=== PATIENT | female | born 1975 | race Caucasian/White ===

== ENCOUNTER 2017-04-12 22:18 | Emergency (ER) | payer BC, OTHER ==
[2017-04-12] MEDS ORDERED: IBUPROFEN 600 MG TABLET PO ONE (23:02)
--- NOTE | 2017-04-12 23:07 | Emergency Department Record ---
History of Present Illness - General Chief Complaint: Ankle/Foot Injury Stated Complaint: LT FOOT PAIN, HURT AT WORK Time Seen by Provider: 04/12/17 23:02 Source: Patient Mode of Arrival: Wheelchair Limitations: No limitations - History of Present Illness Initial Comments: 41 yo female presents to ED for evaluation of a crush injury to the left foot and ankle while at work tonight. Patient reports that her foot was lodged between a high-low and a trailer. Patient denies other injury, and denies health problems other than migraine headaches. MD Complaint: Ankle injury, Foot injury Onset/Timin -: Hour(s) Injury: Ankle: Left, Foot: Left Type of Injury: Blunt Place: Work Severity scale (1-10): 8 Improves With: Rest Worsens With: Movement, Weight bearing Context: Direct blow Associated Symptoms: Swelling, Unable to bear weight - Related Data Previous Rx's Medication Instructions Recorded Hydrocodone/Acetaminophen [[place] 1 each PO Q6H PRN #10 tablet 04/13/17 5-325 Tablet] Allergies Allergy/AdvReac Type Severity Reaction Status Date / Time Penicillins Allergy HIVES Verified 01/19/15 17:25 Sulfa (Sulfonamide Allergy HIVES Verified 01/19/15 17:25 Antibiotics) Travel Screening - Travel/Exposure Within Last 30 Days Have you traveled within the last 30 days?: No - Travel Symptoms Symptom Screening: None Review of Systems Constitutional: Denies: Chills, Fever, Malaise, Night sweats Eyes: Denies: Eye discharge, Eye pain ENT: Denies: Congestion, Ear pain, Epistaxis Respiratory: Denies: Cough, Dyspnea Cardiovascular: Denies: Chest pain, Dyspnea on exertion Endocrine: Denies: Fatigue, Heat or cold intolerance Gastrointestinal: Denies: Abdominal pain, Nausea, Vomiting Genitourinary: Denies: Incontinence, Retention Musculoskeletal: Reports: Arthralgia. Denies: Back pain, Gout, Joint swelling Skin: Denies: Bruising, Change in color Neurological: Denies: Abnormal gait, Confusion, Headache, Seizure Psychiatric: Denies: Anxiety Hematological/Lymphatic: Denies: Anemia, Blood Clots Past Medical History - SOCIAL HISTORY Smoking Status: Current every day smoker - RESPIRATORY Hx Respiratory Disorders: No - CARDIOVASCULAR Hx Cardio Disorders: No - NEURO Hx Neuro Disorders: Yes Hx Headaches: Yes - GI Hx GI Disorders: No - Hx Genitourinary Disorders: No - ENDOCRINE Hx Endocrine Disorders: No - MUSCULOSKELETAL Hx Musculoskeletal Disorders: No - PSYCH Hx Psych Problems: No - HEMATOLOGY/ONCOLOGY Hx Hematology/Oncology Disorders: No Family Medical History Any Significant Family History?: Yes Hx Cancer: Grandparents Hx Diabetes: Mother, Grandparents Hx Heart Disease: Grandparents Hx Kidney Disease: Grandparents Physical Exam - General General Appearance: Alert, Oriented x3, Cooperative, Moderate distress Limitations: No limitations - Head Head exam: Atraumatic, Normocephalic, Normal inspection Head exam detail: negative: Abrasion, Contusion, Moreno's sign, General tenderness, Hematoma, Laceration - Eye Eye exam: Normal appearance. negative: Conjunctival injection, Periorbital swelling, Periorbital tenderness, Scleral icterus - ENT Ear exam: negative: Auricular hematoma, Auricular trauma Nasal Exam: negative: Active bleeding, Discharge, Dried blood, Foreign body Mouth exam: negative: Drooling, Laceration, Muffled voice, Tongue elevation - Neck Neck exam: Normal inspection. negative: Meningismus, Tenderness - Respiratory Respiratory exam: Normal lung sounds bilaterally. negative: Rales, Respiratory distress, Rhonchi, Stridor - Cardiovascular Cardiovascular Exam: Regular rate, Normal rhythm, Normal heart sounds Peripheral Pulses: 3+: Dorsalis Pedis (L) - GI/Abdominal GI/Abdominal exam: Soft. negative: Rebound, Rigid, Tenderness - Rectal Rectal exam: Deferred - exam: Deferred - Extremities Extremities exam: Joint swelling, Tenderness, Other (STS to the proximal foot dorsally, mild STS to the ankle laterally. Strong DPP, no pain proximal to the ankle on evaluation of the LE. Achilles intact, and the compartments of the lower extremity are soft on examination.). negative: Calf tenderness, Pedal edema - Back Back exam: Reports: Normal inspection. Denies: CVA tenderness (R), CVA tenderness (L) - Neurological Neurological exam: Alert, Oriented X3. negative: Motor sensory deficit - Psychiatric Psychiatric exam: Normal affect, Normal mood - Skin Skin exam: Normal color. negative: Abrasion Type of lesion: negative: abrasion Course Vital Signs 04/12/17 22:49 Temperature 98 F Pulse Rate [ 93 H Pulse Ox Probe] Respiratory 24 Rate Blood Pressure 115/90 [Left Arm] Pulse Ox 100 - Reevaluation(s) Reevaluation #1: 04/12/17 23:58 CT Lower extremity: Non-displaced fracture of the cuboid saba extending to the calcaneocuboid joint. Patient was updated on all results, will place in a non-weight bearing boot with crutches and instructions to follow-up with Dr. Bolden. Disposition Disposition: Discharge Clinical Impression: Foot fracture, left Qualifiers: Encounter type: initial encounter Fracture type: closed Qualified Code(s): S92.902A - Unspecified fracture of left foot, initial encounter for closed fracture Disposition: Home, Self-Care Condition: (2) Stable Instructions: Foot Fracture in Adults (ED) Additional Instructions: Return to ED if your symptoms worsen or if you have any concerns. Motrin and ice as needed for pain symptoms. [place] as directed. Follow-up with Dr. Bolden in 1-3 days as directed. Prescriptions: Hydrocodone/Acetaminophen [[place] 5-325 Tablet] 1 each PO Q6H PRN #10 tablet PRN Reason: Pain - Moderate (5-7) Referrals: ROSENDO BOLDEN [DOCTOR OF PODIATRY MEDICINE] - [facility] [Provider Group] Forms: Patient Portal Access Time of Disposition: 23:33 Quality - Quality Measures Quality Measures: N/A - Blood Pressure Screening Does Patient Have Any of the Following: No Blood Pressure Classification: Hypertensive Reading Systolic Measurement: 115 Diastolic Measurement: 90 Screening for High Blood Pressure: < First Hypertensive BP, F/U Documented > [ [id number]] First Hypertensive Follow-up Interventions: Referral to alternative/primary care provider.
[2017-04-12] MEDS ORDERED: HYDROCODONE/APAP 5/325MG TABLET PO ONE (23:58)
[2017-04-13 02:09] LABS: BENZODIAZEPINE SCREEN URINE NOT DETECTED; COCAINE SCREEN URINE NOT DETECTED; PHENCYCLIDINE SCREEN URINE NOT DETECTED
[2017-04-13 02:10] LABS: AMPHETAMINE SCREEN URINE NOT DETECTED; BARBITURATE SCREEN URINE NOT DETECTED; METHADONE SCREEN URINE NOT DETECTED; METHAMPHETAMINE SCREEN NOT DETECTED; OPIATE SCREEN URINE NOT DETECTED; OXYCODONE SCREEN URINE NOT DETECTED; PROPOXYPHENE SCREEN URINE NOT DETECTED; THC SCREEN URINE NOT DETECTED; TRICYCLIC ANTIDEPRESSANT SCRN NOT DETECTED
--- NOTE | 2017-04-13 11:26 | CT SCAN REPORT ---
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 TECHNIQUE: Axial CT scan of the left foot and ankle were performed without IV contrast. Post processing on an independent workstation was performed with 3D volume rendered as well as multiplanar reformatted series obtained. A preliminary report was provided by [facility]. Comparison: No prior exam of any kind with which to compare. Encounter: Initial. FINDINGS: No fracture or dislocation at the left ankle evident. There does appear to be a small essentially undisplaced fracture of the cuboid bone along the superior aspect which appears to involve the superior aspect of the calcaneal cuboid joint as well. Fracture appears essentially undisplaced although may have slight comminution. No other fracture of the left foot identified. No dislocation is seen. Some mild soft tissue swelling along the dorsal aspect of the foot laterally. IMPRESSION: SMALL FRACTURE ALONG THE DORSAL ASPECT OF THE CUBOID BONE WITH EXTENSION INTO THE CALCANEAL CUBOID JOINT AND SOME OVERLYING SOFT TISSUE SWELLING. JOB NUMBER: [id number] MTDD
== END 2017-04-13 00:33 | disposition home or self-care (01) ==
LOC: ER 22:18
DX: S92.215A Nondisplaced fracture of cuboid bone of left foot, initial encounter for closed fracture (principal); W22.8XXA Striking against or struck by other objects, initial encounter; Y92.63 Factory as the place of occurrence of the external cause; Y99.0 Civilian activity done for income or pay
CPT/HCPCS: 80305; 99283; 99284